=== PATIENT | male | born 1960 | race Caucasian/White ===

== ENCOUNTER 2017-08-11 10:54 | Emergency (ER) | payer OTHER ==
[~2017-08-11] VITALS: Ht 170.2 cm; Wt 74.8 kg
[~2017-08-11 10:54] MED LIST: ALPRAZOLAM2 M1 PO; CELEXA20 MG PO; GLIPIZIDE 10 MG10 MG PO; HYDROCODONE-AP1 EAC6 PO; JANUMET 50-1,01 EACH PO; LIPITOR10 MG PO; LISINOPRIL20 MG PO; PAXIL10 MG PO; PEPCID20 MG PO; XANAX1 MG PO
[2017-08-11] MEDS ORDERED: JANUMET 50-1,01 EACH PO (11:07)
[2017-08-11 14:42] LABS: ABSOLUTE NEUTROPHILS 3.7 thou/uL (1.4-8.2); EOSINOPHILS 2.3 % (0.0-3.0); HEMATOCRIT 44.5 % (42.0-52.0); HEMOGLOBIN 15.2 gm/dL (14.0-18.0); MCH 32.5 pg (26.0-34.0); MCHC 34.2 g/dL (28.0-37.0); MCV 95.3 fL (80.0-100.0); MONOCYTES 7.5 % (1.0-8.0); PLATELET COUNT 268 thou/uL (150-400); POLYS 52.2 % (36.0-66.0); RBC 4.67 mil/uL (4.50-6.00); RDW 12.5 % (10.5-14.5); WBC 7.1 thou/uL (4.0-11.0)
[2017-08-11 14:45] LABS: CALCIUM 8.9 mg/dL (8.5-10.1); CREATININE 0.7 mg/dL (0.7-1.3); POTASSIUM 3.8 mmol/L (3.5-5.1)
== END 2017-08-11 19:38 | disposition short-term general hospital (02) ==
LOC: ER 10:54
PROVIDERS: Emergency Medicine
DX: I74.10 Embolism and thrombosis of unspecified parts of aorta (principal); I71.00 Dissection of unspecified site of aorta; I73.9 Peripheral vascular disease, unspecified; M54.5 Low back pain

== ENCOUNTER → 2020-02-01 | Outpatient (CLI) | payer OTHER | LOC: LAB 14:42 | PROVIDERS: ATTEND Family Medicine | DX: Z20.828 Contact with and (suspected) exposure to other viral communicable diseases (principal) ==

== ENCOUNTER 2021-04-10 06:04 | Emergency (ER) | payer OTHER ==
[~2021-04-10] VITALS: Ht 170.2 cm; Wt 68.0 kg
[2021-04-10] MEDS ORDERED: PRINIVIL20 MG PO (06:17)
[2021-04-10] MEDS ORDERED: CARVEDILOL12.5 MG PO (06:17)
[2021-04-10] MEDS ORDERED: ALPRAZOLAM1 MG PO (06:18)
[2021-04-10] MEDS ORDERED: METFORMIN HCL1000 MG PO (06:19)
[2021-04-10] MEDS ORDERED: JARDIANCE25 MG PO (06:19)
[2021-04-10] MEDS ORDERED: TRULICITY1.5 MG/0.5 SUBQ (06:19)
[2021-04-10] MEDS ORDERED: ATORVASTATIN CA80 MG PO (06:19)
[2021-04-10] MEDS ORDERED: CLOPIDOGREL75 MG PO (06:20)
[2021-04-10 06:32] LABS: ABSOLUTE NEUTROPHILS 2.8 thou/uL (1.4-8.2); BASOPHILS 0.7 % (0.0-2.0); EOSINOPHILS 4.8 % (0.0-3.0); HEMATOCRIT 48.3 % (42.0-52.0); HEMOGLOBIN 16.1 gm/dL (14.0-18.0); LYMPHOCYTES 29.7 % (24.0-44.0); MCH 32.1 pg (26.0-34.0); MCHC 33.3 g/dL (28.0-37.0); MCV 96.5 fL (80.0-100.0); MONOCYTES 12.7 % (1.0-8.0); PLATELET COUNT 207 thou/uL (150-400); POLYS 52.1 % (36.0-66.0); WBC 5.3 thou/uL (4.0-11.0)
[2021-04-10 07:13] LABS: CALCIUM 9.2 mg/dL (8.5-10.1); CREATININE 0.9 mg/dL (0.7-1.3); POTASSIUM 4.5 mmol/L (3.5-5.1)
[2021-04-10 07:23] LABS: ALBUMIN 3.7 g/dL (3.4-5.0); TOTAL BILIRUBIN 0.4 mg/dL (0.2-1.0); TOTAL PROTEIN 6.8 g/dL (6.4-8.2)
--- NOTE | 2021-04-10 07:40 | EKG ---
[place] [address] [facility] [place] [address] ELECTROCARDIOGRAM REPORT Name: JOY EGAN [id number] Admission: 04/10/21 Attend Phys: Discharge: Date of : 60 Report #: [id number] [facility] ED Test Date: 2021-04-10 Test Time: 06:11:05 Pat Name: JOY EGAN Department: Room: Gender: M [employer] Presser: : 1960 Requested By: Aleja Lynne Order Number: [id number] MD: Rashaad Silveira Measurements Intervals [place] Rate: 91 P: 78 SC: 134 QRS: 97 QRSD: 87 T: 45 QT: 328 QTc: 404 Interpretive Statements Sinus rhythm J Point elevation, anterior leads Compared to ECG 07/06/2014 08:08:37 Right-axis deviation now present ST (T wave) deviation now present Electronically Signed On 04-10-2021 7:40:23 [employer] by Rashaad Silveira [email or web address] <ELECTRONICALLY SIGNED> By: Rashaad Silveira MD, [facility] 04/10/21 0740 610 0 Rashaad Silveira MD, FACC /EPI
[2021-04-10 09:08] VITALS: BP 123/71
== END 2021-04-10 09:08 | disposition home or self-care (01) ==
LOC: ER 06:04
PROVIDERS: Emergency Medicine
DX: R07.89 Other chest pain (principal); R91.1 Solitary pulmonary nodule; I10 Essential (primary) hypertension; E11.9 Type 2 diabetes mellitus without complications; E78.00 Pure hypercholesterolemia, unspecified; F41.9 Anxiety disorder, unspecified; F32.9 Major depressive disorder, single episode, unspecified; F17.210 Nicotine dependence, cigarettes, uncomplicated; Z79.899 Other long term (current) drug therapy